=== PATIENT | female | born 1995 | race Caucasian/White ===

== ENCOUNTER 2024-10-15 11:34 | Emergency (ER) | payer MEDICAID, SELFPAY ==
[2024-10-15 11:49] VITALS: BP 151/90; PULSE 100; RESP 19; TEMP 36.9; O2SAT 97; BMI 44.7
--- NOTE | 2024-10-15 12:10 | PD.EDRME ---
Rapid Medical Screening Exam E Arrival date/time: 10/15/24 11:34 28-year-old female presents to the emergency department with complaints of left upper abdominal pain that radiates into her left shoulder. I have greeted and performed a focused initial assessment of this patient. Initial appropriate labs ordered at this time. A comprehensive ED assessment and evaluation of the patient and analysis of all test and completion of medical decision making process will be conducted by additional ED provider. Chief Complaint: Extremity Injury, Upper Time Seen by Provider: 10/15/24 11:44 Vital signs: Vital Signs Temperature 98.5 F 10/15/24 11:49 Pulse Rate 100 10/15/24 11:49 Respiratory Rate 19 10/15/24 11:49 Blood Pressure 151/90 H 10/15/24 11:49 Pulse Oximetry (%) 97 10/15/24 11:49 Oxygen Delivery Method Room Air 10/15/24 11:49
--- NOTE | 2024-10-15 12:11 | XR_ITS ---
Examination: Abdomen sonogram, Limited Date and time of exam: October 15, 2024 1329 hrs. Indications: Left upper abdominal pain beginning 4 days ago Technique: Real-time so scale transabdominal sonographic images of the upper abdomen obtained. Findings: Absent gallbladder Normal common bile duct 0.2 cm Pancreatic head 2.5 cm Hepatomegaly 17.6 cm fatty infiltration no focal liver lesions Normal hepatopedal portal venous flow Patent IVC Impression: Absent gallbladder Normal common bile duct Hepatomegaly, fatty liver, no focal liver lesions
--- NOTE | 2024-10-15 12:12 | XR_ITS ---
Examination: Shoulder,left, 3 views Technique: Shoulder AP internal rotation, AP external rotation, Y view shoulder, 3 views Exam date and time :October 15, 2024 1226 hrs. Indications: Onset shoulder pain beginning 4 days ago. Findings: No acute fracture or shoulder dislocation No calcific tendinitis No AC joint separation Impression: No shoulder fracture or dislocation
[2024-10-15 13:06] LABS: Collection Type, Urine Clean Catch
[2024-10-15 13:10] LABS: Basophils # (Auto) 0.1 Thou/mm3 (0.0-0.2); Basophils % (Auto) 0 % (0-2.5); Eosinophils # (Auto) 0.1 Thou/mm3 (0.0-0.5); Eosinophils % (Auto) 1 % (0-10); Hematocrit 43.8 % (36.0-46.0); Immature Granulocytes % (Auto) 0 % (0-0); Immature Granulocytes Auto 0.05 Thou/mm3 (0.00-0.00); Lymphocytes # (Auto) 2.5 Thou/mm3 (1.0-4.8); Lymphocytes % (Auto) 23 % (10-50); Mean Corpuscular HGB Conc 34.2 g/dl (31.0-37.0); Mean Corpuscular Hemoglobin 29.6 pg (25.0-35.0); Mean Corpuscular Volume 87 fL (80-100); Monocytes # (Auto) 0.7 Thou/mm3 (0.0-0.8); Monocytes % (Auto) 7 % (0-12); Neutrophils # (Auto) 7.8 Thou/mm3 (1.8-7.7); Neutrophils % (Auto) 70 % (37-80); Nucleated Red Blood Cell % 0 /100 WBC (0); Platelet Count 339 Thou/mm3 (140-440); RDW Standard Deviation 39.8 fL (36.4-46.3); Red Blood Count 5.06 Miln/mm3 (4.00-5.20); White Blood Count 11.3 Thou/mm3 (3.6-11.0)
[2024-10-15 13:22] LABS: Bilirubin,Urine Negative (Negative); Blood,Urine Trace (Negative); Clarity,Urine Hazy (Clear/Hazy); Color,Urine Yellow (Lt Yel-Yel); Glucose, Urine Negative (Negative); Ketones,Urine Negative (Negative); Leukocyte Esterase,Urine Positive (Negative); Nitrite,Urine Negative (Negative); Protein,Urine 1+ (Neg - Trace); RBC,Urine 1 /hpf (0-3); Specific Gravity,Urine 1.031 (1.001-1.035); Squamous Epithelial Cell,Urine 9 /hpf (0-5); Urobilinogen,Urine Negative mg/dL (0.0-1.0); WBC,Urine 5 /hpf (0-5)
[2024-10-15 13:23] LABS: HCG Qualitative,Urine Negative
[2024-10-15 13:32] LABS: Alanine Aminotransferase 20 U/L (10-49); Albumin/Globulin Ratio 1.3 (1.2-2.2); Alkaline Phosphatase 84 U/L (46-116); Anion Gap 10 (7-16); Aspartate Amino Transferase 17 U/L (0-34); BUN/Creatinine Ratio 17 Ratio (12-20); Bilirubin,Total 0.6 mg/dL (0.3-1.2); Blood Urea Nitrogen 10 mg/dL (9-23); Calcium 9.7 mg/dL (8.3-10.6); Calcium (Corrected) 9.7 mg/dL (8.5-10.1); Carbon Dioxide 25.7 mMol/L (20.0-31.0); Chloride 102 mMol/L (98-107); Creatinine (Component) 0.6 mg/dL (0.6-1.3); Globulin 3.9 gm/dL (2.3-3.5); Glucose 96 mg/dL (74-106); Lipase 42 U/L (12-53); Osmolality,Calculated 274 (275-295); Potassium 3.8 mMol/L (3.4-5.1); Sodium 138 mMol/L (136-145); Total Protein 8.9 gm/dL (5.7-8.2); eGFR > 60 See Note
--- NOTE | 2024-10-15 13:51 | PD.EDABDPN ---
ED Abdominal Pain RME/HPI General Chief Complaint: Extremity Injury, Upper Stated complaint: LEFT SHOULDER PAIN x 4 DAYS Time seen by provider: 10/15/24 11:44 Arrival date/time: 10/15/24 11:34 RME / HPI RME / HPI narrative: 10/15/24 11:34 28-year-old female presents to the emergency department with complaints of left upper abdominal pain that radiates into her left shoulder. I have greeted and performed a focused initial assessment of this patient. Initial appropriate labs ordered at this time. A comprehensive ED assessment and evaluation of the patient and analysis of all test and completion of medical decision making process will be conducted by additional ED provider. DR. DENIS MAIN ED EVALUATION 28 year old female with history of cholecystectomy 3 years ago otherwise no other chronic medical history reported presents to the ED for evaluation of left sided chest/left upper abdomen and left shoulder pain beginning 3 days ago. Described as aching in sensation that is located most just below the left breast and rib cage area that radiates up to the left shoulder. Rating as mild-moderate. Denies any injury or trauma. Denies fevers, chills, cough, shortness of breath, difficulty breathing, abdominal pain, nausea, vomiting, diarrhea, or urinary symptoms. Related Data Home Medications ?Medication ?Instructions ?Recorded ?Confirmed vits no.124-ferrous fum 1 tab PO QDAY 09/09/23 10/22/23 27 mg iron-folic acid 800 mcg tablet ( Vitamin) Previous Rx's ?Medication ?Instructions ?Recorded dicyclomine 20 mg tablet 20 mg PO TID PRN abdominal pain 07/13/24 #30 tabs azithromycin 250 mg tablet See Rx Instructions PO .COMPLEX #6 10/15/24 (Zithromax Z-Omer) tabs Allergies Allergy/AdvReac Type Severity Reaction Status Date / Time No Known Allergies Allergy Verified 10/15/24 11:36 Review of Systems Review of Systems Narrative Review of Systems: GEN: No fever, no chills, no weight loss EYES: No discharge, no visual changes, no pain HEENT: No ear pain, no congestion, no sore throat PULM: No shortness of breath, no cough, no congestion CV: +left sided lower chest pain, no dyspnea on exertion, no palpitations GI: No nausea, no vomiting, no diarrhea, +left upper pain, no constipation : No frequency, no urgency and no dysuria MUSC/SKEL: +left shoulder pain, no back pain SKIN: No rash PSYCH: No hallucinations, no depression HEME/LYMPH: No easy bleeding or bruising tendencies NEURO: No weakness, no headache Past Medical History Past Medical History CARDIAC: Positive Hypercholesterolemia ENDOCRINE: Positive Endocrine Disorders Family History FAMILY HISTORY: Positive Family Cancer (mother- breast) and Family Surgery (brother-appendix) Surgical History SURGICAL: Positive Abdominal Surgery Social History SMOKING STATUS: Never smoker SUBSTANCE USE: former substance user (marijuana ) ED Exam Narrative Physical exam: GENERAL APPEARANCE: Well hydrated, well nourished, in no acute distress. VITALS: All vitals were reviewed and the pulse ox is 97% on room air which is normal according to my interpretation. HEENT: Normocephalic, atramatic, EOMI, EACs are patent. There is no bulge or retraction. Throat without erythema or exudate. Moist oromucosa. No jaundice NECK: Supple, no JVD or bruits. CARDIOVASCULAR: Heart regular without S3-S4 or murmur. No rubs or gallops. LUNGS/CHEST: Clear to auscultation bilaterally. No rales, rhonchi, or wheezing. Normal inspection. ABDOMEN: Soft, nontender, with normal bowel sounds. No pulsatile masses. No rebound, rigidity, or guarding. No incarcerated hernia. Normal inspection and palpation. EXTREMITIES: Normal inspection and palpation. No edema, clubbing, or cyanosis. Intact CSM SKIN: Warm and dry without rashes. Normal inspection. MUSCULOSKELETAL: Normal inspection. No gross deformity, full ROM all extremities NEURO: Alert and oriented x3. Cranial nerves II through XII grossly intact. There are no other motor or sensory deficits noted. PSYCHIATRIC: Normal mood and affect. No psychosis. Course Course Course Narrative: chest xray ordered to help determine etiology of chest pain. Quality Measures none Orders Category Date Time Status EKG (ED ONLY) *Do not use* NOW Care 10/15/24 13:53 Completed EKG (ED Only) Stat Exams 10/15/24 13:53 Ordered US gall bladder Stat Exams 10/15/24 12:11 Completed XR chest 2V Stat Exams 10/15/24 13:53 Completed XR shoulder LT min 2V Stat Exams 10/15/24 12:12 Completed CBC Stat Lab 10/15/24 12:46 Completed Comprehensive Metabolic Panel Stat Lab 10/15/24 12:46 Completed HCG Qualitative,Urine Stat Lab 10/15/24 12:57 Completed Lipase Stat Lab 10/15/24 12:46 Completed Urinalysis Stat Lab 10/15/24 12:57 Completed Vital Signs Vital signs: Vital Signs Temperature 98.5 F 10/15/24 11:49 Pulse Rate 100 10/15/24 11:49 Respiratory Rate 19 10/15/24 11:49 Blood Pressure 151/90 H 10/15/24 11:49 Pulse Oximetry (%) 97 10/15/24 11:49 Oxygen Delivery Method Room Air 10/15/24 11:49 Abdominal Pain MDM MDM Narrative MDM Narrative:: ISona am scribing for and in the presence of Dr. Denis. CBC unremarkable. CMP and lipase are negative. test is negative. UA negative. Left shoulder x-ray interpreted by me: No fracture. No dislocation. Visible part of the upper left ribs are unremarkable. Questionable left lower lobe infiltrate on this x-ray. 2 view chest x-ray interpreted by me: Cannot rule out a left lingular infiltrate on the chest x-ray. Seen mostly in the anterior view. Bones unremarkable. Mediastinum normal. No hemothorax no pneumothorax no CHF. Twelve-lead EKG at 1403 interpreted by me: Sinus rhythm. Heart rate of 93. Normal axis. Incomplete right bundle branch block. No ST elevation or depression. No PVC. No STEMI. Regular rate and rhythm. [facility] [address] [id number] [place] [facility] Report Signed Patient: MALLIKA JOHNSON. Record#: [id number] Birthdate: 1995 Age/Sex: 28 / F Location: [facility] Attending Dr: Ordering Physician: Nurys Hdz Date of Service: 10/15/24 Procedure(s): US gall bladder Accession Number(s): [id number] cc: Bethel Dowling MD; Kaz Woody MD; Nurys Hdz~ Examination: Abdomen sonogram, Limited Date and time of exam: October 15, 2024 1329 hrs. Indications: Left upper abdominal pain beginning 4 days ago Technique: Real-time so scale transabdominal sonographic images of the upper abdomen obtained. Findings: Absent gallbladder Normal common bile duct 0.2 cm Pancreatic head 2.5 cm Hepatomegaly 17.6 cm fatty infiltration no focal liver lesions Normal hepatopedal portal venous flow Patent IVC Impression: Absent gallbladder Normal common bile duct Hepatomegaly, fatty liver, no focal liver lesions Dictated By: Kaz Woody MD Signed By: <Electronically signed by Kaz Woody MD in OV> 10/15/24 1441 DD/ 1440 TD/TT: 10/15/24 1440 Trust Manager: URI It appears that the chest pain is secondary to the left lingular pneumonia. I will put on Zithromax for 5 days. She need to follow-up with PMD for repeat chest x-ray next week. Return the nearest ER if condition worsens or if new symptoms develop. Patient data External records reviewed:: [facility] previous records (I reviewed ED visit on 07/13/2024 ) Clinical information provided by:: patient Social determinants that could affect healthcare access:: none Patient has the following chronic illnesses:: Cholecystectomy How is presenting disease/condition affected by chronic disease/condition?: no chronic disease Evaluation data The following diagnostics were reviewed and interpreted by me:: lab results and radiology exam(s) Lab and/or radiology exams considered but not ordered:: None Interpretation Summary: Ordering Physician: Nurys Hdz Date of Service: 10/15/24 Procedure(s): XR shoulder LT min 2V Accession Number(s): [id number] cc: Kaz Woody MD; Nurys Hdz~ Examination: Shoulder,left, 3 views Technique: Shoulder AP internal rotation, AP external rotation, Y view shoulder, 3 views Exam date and time :October 15, 2024 1226 hrs. Indications: Onset shoulder pain beginning 4 days ago. Findings: No acute fracture or shoulder dislocation No calcific tendinitis No AC joint separation Impression: No shoulder fracture or dislocation Dictated By: Kaz Woody MD Signed By: <Electronically signed by Kaz Woody MD in OV> 10/15/24 1245 Ordering Physician: Nurys Hdz Date of Service: 10/15/24 Procedure(s): US gall bladder Accession Number(s): [id number] cc: Bethel Dowling MD; Kaz Woody MD; Nurys Hdz [facility]~ Examination: Abdomen sonogram, Limited Date and time of exam: October 15, 2024 1329 hrs. Indications: Left upper abdominal pain beginning 4 days ago Technique: Real-time so scale transabdominal sonographic images of the upper abdomen obtained. Findings: Absent gallbladder Normal common bile duct 0.2 cm Pancreatic head 2.5 cm Hepatomegaly 17.6 cm fatty infiltration no focal liver lesions Normal hepatopedal portal venous flow Patent IVC Impression: Absent gallbladder Normal common bile duct Hepatomegaly, fatty liver, no focal liver lesions Dictated By: Kaz Woody MD Signed By: <Electronically signed by Kaz Woody MD in OV> 10/15/24 1441 Ordering Physician: Zain Denis MD Date of Service: 10/15/24 Procedure(s): XR chest 2V Accession Number(s): [id number] cc: Bethel Dowling MD; Kaz Woody MD; Zain Denis MD~ Examination: PA lateral chest 2 views Technique: Upright PA lateral chest 2 views Exam date and time: October 15, 2024 1406 hrs. Comparison May 29, 2022 Indications: Onset chest pain today. Findings: Scarring versus early infiltrate in the lingular segment, obscuring detail left cardiac contour Minor prominence left ventricle Right lung clear No pulmonary edema Impression: Scarring versus early pneumonia in the lingular segment left upper lobe, clinical correlation advised Dictated By: Kaz Woody MD Signed By: <Electronically signed by Kaz Woody MD in OV> 10/15/24 3013 Medications / Prescriptions Medications or Prescriptions considered but not ordered:: None Medication administrations:: See above Consultations Consultation(s) initiated? (list below): No Diagnosis Differential diagnosis abdominal pain: abdominal pain and other (Chest pain, left shoulder strain) Most likely diagnosis given after review of the tests above:: Atypical chest pain Left shoulder pain Pneumonia Admission Indicated Admission indicated?: not indicated Admission Request Was there a request for admission?: No Disposition Plan Disposition Plan: Discharge Discharge Attestation Discharge Attestation: The patient and all family members were given an opportunity to ask questions and understood the discharge instructions. Discharge instructions specifically effects, indications for sooner follow up or return to the emergency department, and the expected course of current diagnosis. Patient condition: Stable Discharge Plan Plan Patient Disposition: HOME (Self Care) Disposition Comment: Stable and improved Prescriptions/Referrals Prescriptions/Med Rec: New azithromycin [Zithromax Z-Omer] 250 mg tablet See Rx Instructions PO .COMPLEX Qty: 6 0RF Rx Instructions: For 250 mg dose pack: take 500 mg today (day 1), then 250 mg for 4 days (days 2-5) No Action Vitamin 27 mg iron- 800 mcg Tablet 1 tab PO QDAY dicyclomine 20 mg tablet 20 mg PO TID PRN (Reason: abdominal pain) Qty: 30 0RF Referrals: Bethel Dowling MD [Primary Care Provider] - In 1 week Problem List Clinical Impression: Atypical chest pain, Left shoulder pain, Pneumonia Patient/Caregiver Discharge Instructions Education Materials: ED Chest Pain, Noncardiac, ED Pneumonia (Adult), ED Shoulder Pain, Uncertain Cause Additional Instructions: Take Zithromax for pneumonia. Motrin can be taken for pain. Follow-up with your medical doctor in 3 days for recheck and further care and repeat a chest x-ray. Return the nearest ER if condition worsens or if new symptoms develop especially high fever Print Language: Mexican Stand Alone Forms: [place] Award Info., Patient Portal Info Letter
--- NOTE | 2024-10-15 13:53 | EKG_ITS ---
[facility] Test Date: 2024-10-15 Pat Name: MALLIKA JOHNSON Department: Room: - Gender: Female Business Solutions Director: : 1995 Requested By: Zain Lara Order Number: [id number] Reading MD: Zain Lara Measurements Intervals [place] Rate: 93 P: 18 [place]: 175 QRS: 29 QRSD: 108 T: 29 QT: 353 QTc: 440 Interpretive Statements SINUS RHYTHM INCOMPLETE RIGHT BUNDLE BRANCH BLOCK [90+ ms QRS DURATION, TERMINAL R IN V1/V2, 40+ ms S IN I/aVL/V4/V5/V6] NONSPECIFIC T-WAVE ABNORMALITY Compared to ECG 05/28/2022 23:27:36 Incomplete right bundle-branch block now present T-wave abnormality still present /store/S0/[id number].pdf
[2024-10-15 14:50] VITALS: BP 144/84; PULSE 100; RESP 18; TEMP 36.9; O2SAT 97
== END 2024-10-15 15:13 | disposition home or self-care (01) ==
PROVIDERS: Nurse Practitioner Primary Care; Emergency Provider Emergency Medicine; PCP Family Medicine
DX: M25.512 Pain in left shoulder (principal); J18.9 Pneumonia, unspecified organism; R07.89 Other chest pain
CPT/HCPCS: 36415; 71046; 73030; 76705; 80053; 81001; 81025; 83690; 85025; 93005; 99284